=== PATIENT | male | born 2000 | race Caucasian/White ===

== ENCOUNTER → 2019-02-15 | Outpatient (CLI) | payer OTHER ==
--- NOTE | 2019-02-15 11:10 | RAD ---
Indication: Disability determination. Chronic upper and lower back pain TECHNIQUE: 2 views of the lumbar spine. COMPARISON: None FINDINGS: Lumbar spine is in normal anatomic alignment. No compression deformities. No significant intervertebral disc space narrowing or productive changes seen. SI joints within normal limits. IMPRESSION: No significant degenerative disc disease. Electronically signed by: Alen Caro DO (02/15/2019 11:05 AM) [facility]
== END | disposition home or self-care (01) ==
LOC: RAD 10:03
PROVIDERS: ATTEND Surgery
DX: M54.5 Low back pain (principal); M54.6 Pain in thoracic spine; G89.29 Other chronic pain
CPT/HCPCS: 72100